=== PATIENT | female | born 1955 | race Caucasian/White ===

== ENCOUNTER 2018-01-24 14:00 | Inpatient (IN) | payer OTHER ==
[~2018-01-24] VITALS: Ht 170.2 cm; Wt 44.2 kg
[~2018-01-24 14:00] MED LIST: AMLODIPINE BESYL5 MG PO; ASPIR-LOW81 MG PO; ATORVASTATIN CA80 MG PO; CALCIUM 500 MG1 EACH PO; CARDIZEM CD,CA120 MG PO; CHLORDIAZEPOXID25 MG PO; CIPROFLOXACIN500 M1 PO; CLONIDINE HCL0.2 MG PO; COLACE100 MG PO; CYANOCOBAL1000 MCG/2 IM; FAMOTIDINE20 MG PO; FLEXERIL10 MG PO; FOLIC ACID1 MG PO; HEPARIN SO5000 UNITS SC; HYDROCODON-ACE1 EAC7 PO; K-DUR20 MEQ PO; LISINOPRIL10 MG PO; LISINOPRIL20 MG PO; NICOTINE PATCH1 EAC2 TD; NOHOMEMEDS; NORVASC10 MG PO; THERAGRAN1 TABLET PO; Thiamine,Vitamin B1 PO; VANCOCIN HCL125 MG PO
[2018-01-24 15:09] LABS: HEMATOCRIT 32.1 % (36.0-46.0); HEMOGLOBIN 11.8 G/DL (11.9-15.5); MCHC 36.8 G/DL (30.0-36.0); MCV 81.7 FL (83-99); PLATELET COUNT 307 K/uL (156-360); RBC DIS.WIDTH-SD 39.2 % (39-53); RED BLOOD COUNT 3.93 M/uL (3.80-5.20); WHITE BLOOD COUNT 5.4 K/uL (4.1-10.2)
[2018-01-24 15:20] LABS: ALBUMIN 4.3 g/dL (3.2-4.8); CHLORIDE 86 mEq/L (99-109); POTASSIUM 4.4 mEq/L (3.7-5.4); SODIUM 125 mEq/L (136-147)
[2018-01-24 15:22] LABS: GLUCOSE 106 mg/dL (70-99)
[2018-01-24 15:23] LABS: TOTAL PROTEIN 7.7 g/dL (6.4-8.3)
[2018-01-24 15:24] LABS: TOTAL BILIRUBIN 0.5 mg/dL (0.0-1.0)
[2018-01-24 15:26] LABS: ALKALINE PHOSPHATASE 86 IU/L (3-129); CREATININE 6.9 mg/dL (0.6-1.3); GFR ESTIMATE (CALCULATED) 6 mL/min/
[2018-01-24 15:28] LABS: AST (GOT) 18 IU/L (2-34); DIRECT BILIRUBIN 0.2 mg/dL (0.0-0.3)
[2018-01-24 15:29] LABS: ALT (GPT) 11 IU/L (3-49); TROP-I INTERPRETATION NEGATIVE; TROPONIN-I 0.19 ng/mL (0.0-0.30)
[2018-01-24 15:30] LABS: UREA NITROGEN (BUN) 101 mg/dL (9-23)
[2018-01-24] MEDS ORDERED: LISINOPRIL40 MG PO (16:04)
[2018-01-24] MEDS ORDERED: CHLORTHALIDONE25 MG PO (16:04)
[2018-01-24] MEDS ORDERED: LO-DOSE ASPIRIN81 M2 PO (16:05)
[2018-01-24] MEDS ORDERED: FOLIC ACID1 MG PO (16:06)
[2018-01-24] MEDS ORDERED: LIBRIUM25 MG PO (16:07)
[2018-01-24 16:20] LABS: CREATINE KINASE 59 IU/L (1-294); TOTAL CK 59 IU/L (1-294)
[2018-01-24 16:26] LABS: CK-MB 5.1 ng/mL (0.0-4.9); CKMB RELATIVE INDEX 8.6 (0.0-3.9)
[2018-01-24 17:22] LABS: THYROTROPIN (TSH) 2.4 MIU/L (0.4-5.5)
[2018-01-24 17:54] LABS: APPEARANCE SL.HAZY ((CLEAR)); BILIRUBIN NEGATIVE; BLOOD NEGATIVE; COLOR YELLOW ((YELLOW)); GLUCOSE (STRIP) NEGATIVE; KETONES 5; LEUKOCYTES TRACE; NITRITE NEGATIVE; PROTEIN (STRIP) NEGATIVE; SPECIFIC GRAVITY 1.006 (1.000-1.030); UROBILINOGEN 0.2 MG/DL (0.2-1.0)
[2018-01-24 18:03] VITALS: BP 103/60
[2018-01-24 18:10] LABS: BACTERIA RARE /HPF; CALCIUM OXALATE CRYSTALS 2+ /HPF; EPITHELIAL CELLS RARE /HPF; HYALINE CASTS 0-5 /LPF; MUCUS NONE SEEN /LPF; RED BLOOD CELLS NONE SEEN /HPF (0-5); UCUL ADDED? NO; WHITE BLOOD CELLS 0-5 /HPF (0-5)
[2018-01-24 19:36] VITALS: BP 91/58
[2018-01-25 00:54] VITALS: BP 98/62
[2018-01-25 04:15] VITALS: BP 100/57
[2018-01-25 06:38] LABS: HEMATOCRIT 27.1 % (36.0-46.0); MCH 28.9 PG (29.0-34.0); MCHC 34.7 G/DL (30.0-36.0); MCV 83.4 FL (83-99); PLATELET COUNT 276 K/uL (156-360); RBC DIS.WIDTH-CV 13.3 % (11.8-14.6); RBC DIS.WIDTH-SD 40.6 % (39-53); RED BLOOD COUNT 3.25 M/uL (3.80-5.20); WHITE BLOOD COUNT 4.2 K/uL (4.1-10.2)
[2018-01-25 06:49] LABS: HEMOGLOBIN 9.4 G/DL (11.9-15.5)
[2018-01-25 06:54] LABS: ALBUMIN 3.3 G/DL (3.2-4.8); CHLORIDE 99 MEQ/L (99-109); CREATINE KINASE 70 IU/L (1-294); GLUCOSE 95 mg/dL (70-99); MAGNESIUM 1.9 mg/dl (1.3-2.7); PHOSPHORUS 4.4 mg/dL (2.5-4.9); POTASSIUM 3.9 MEQ/L (3.7-5.4); UREA NITROGEN (BUN) 90 mg/dL (9-23)
[2018-01-25 07:01] LABS: CREATININE 3.4 MG/DL (0.6-1.3); GFR ESTIMATE (CALCULATED) 15 mL/min/; SODIUM 132 MEQ/L (136-147)
[2018-01-25 07:35] VITALS: BP 106/58
[2018-01-25 08:23] LABS: HEMATOCRIT 26.1 % (36.0-46.0); HEMOGLOBIN 9.4 G/DL (11.9-15.5); MCV 82.9 FL (83-99)
[2018-01-25 11:40] VITALS: BP 123/84
[2018-01-25 14:58] LABS: HEMATOCRIT 26.7 % (36.0-46.0); HEMOGLOBIN 9.7 G/DL (11.9-15.5); MCV 81.9 FL (83-99)
[2018-01-25 17:05] LABS: INTACT PARATHYROID HORMONE 103 pg/mL (10-69)
[2018-01-25 20:01] VITALS: BP 85/57
[2018-01-25 20:32] VITALS: BP 110/72
[2018-01-26 00:11] VITALS: BP 95/61
[2018-01-26 03:59] VITALS: BP 96/63
[2018-01-26 05:40] LABS: BASOPHIL (%) 0.7 % (0-1); EOSINOPHIL (%) 1.6 % (0-5); EOSINOPHIL COUNT 0.1 K/uL (0-0.3); HEMATOCRIT 24.8 % (36.0-46.0); HEMOGLOBIN 8.9 G/DL (11.9-15.5); IMMATURE GRANULOCYTE (%) 0.4 % (0.0-0.7); LYMPHOCYTE (%) 26.3 % (15-42); LYMPHOCYTE COUNT 1.2 K/uL (1.0-2.8); MCH 29.4 PG (29.0-34.0); MCHC 35.9 G/DL (30.0-36.0); MCV 81.8 FL (83-99); MONOCYTE (%) 9.6 % (3-12); MONOCYTE COUNT 0.4 K/uL (0-0.8); NEUTROPHIL (%) 61.4 % (45-76); NEUTROPHIL COUNT 2.8 K/uL (1.8-6.4); PLATELET COUNT 287 K/uL (156-360); RBC DIS.WIDTH-CV 13.3 % (11.8-14.6); RBC DIS.WIDTH-SD 40.1 % (39-53); RED BLOOD COUNT 3.03 M/uL (3.80-5.20); WHITE BLOOD COUNT 4.5 K/uL (4.1-10.2)
[2018-01-26 07:23] VITALS: BP 106/60
[2018-01-26 07:48] LABS: ALKALINE PHOSPHATASE 45 IU/L (3-129); ALT (GPT) 9 IU/L (3-49); AST (GOT) 16 IU/L (2-34); CHLORIDE 102 MEQ/L (99-109); GLUCOSE 136 mg/dL (70-99); IRON 83 MCG/DL (35-150); SODIUM 136 MEQ/L (136-147); TOTAL BILIRUBIN 0.3 MG/DL (0.0-1.0); TOTAL PROTEIN 5.1 G/DL (6.4-8.3); TRANSFERRIN (TIBC) 139.3 mg/dL (215-380); TRANSFERRIN SATUR. 60 % (20-55); UREA NITROGEN (BUN) 56 mg/dL (9-23)
[2018-01-26 07:49] LABS: CREATININE 1.4 MG/DL (0.6-1.3); GFR ESTIMATE (CALCULATED) 40 mL/min/; MAGNESIUM 1.3 mg/dl (1.3-2.7); PHOSPHORUS 2.5 mg/dL (2.5-4.9); POTASSIUM 2.9 MEQ/L (3.7-5.4)
[2018-01-26 08:42] LABS: FERRITIN 165 NG/ML (10-291)
[2018-01-26 09:43] LABS: INTACT PARATHYROID HORMONE 81 pg/mL (10-69)
[2018-01-26 10:15] LABS: FOLIC ACID (FOLATE) > 22.0 NG/ML (5.0-22.0)
[2018-01-26 11:27] VITALS: BP 93/54
[2018-01-26 15:33] VITALS: BP 115/78
[2018-01-26 19:36] VITALS: BP 137/67
[2018-01-27] VITALS (7 sets, daily range): BP systolic 106–163; BP diastolic 60–92
[2018-01-27 08:40] LABS: HEMATOCRIT 26.5 % (36.0-46.0); HEMOGLOBIN 9.1 G/DL (11.9-15.5); MCH 29.8 PG (29.0-34.0); MCHC 34.3 G/DL (30.0-36.0); PLATELET COUNT 247 K/uL (156-360); RBC DIS.WIDTH-CV 14.6 % (11.8-14.6); RBC DIS.WIDTH-SD 45.9 % (39-53); RED BLOOD COUNT 3.05 M/uL (3.80-5.20); WHITE BLOOD COUNT 5.1 K/uL (4.1-10.2)
[2018-01-27 08:57] LABS: MCV 86.9 FL (83-99)
[2018-01-27 09:17] LABS: CHLORIDE 108 MEQ/L (99-109); CREATININE 1.1 MG/DL (0.6-1.3); GFR ESTIMATE (CALCULATED) 53 mL/min/; GLUCOSE 125 mg/dL (70-99); SODIUM 137 MEQ/L (136-147)
[2018-01-27 09:24] LABS: POTASSIUM 4.5 MEQ/L (3.7-5.4); UREA NITROGEN (BUN) 27 mg/dL (9-23)
[2018-01-28] VITALS (7 sets, daily range): BP systolic 101–134; BP diastolic 59–89
[2018-01-28 03:09] LABS: C DIFF TOXIN NEGATIVE (NEGATIVE)
[2018-01-28 06:44] LABS: HEMATOCRIT 25.7 % (36.0-46.0); HEMOGLOBIN 8.8 G/DL (11.9-15.5); MCH 29.6 PG (29.0-34.0); MCHC 34.2 G/DL (30.0-36.0); MCV 86.5 FL (83-99); PLATELET COUNT 261 K/uL (156-360); RBC DIS.WIDTH-CV 14.7 % (11.8-14.6); RED BLOOD COUNT 2.97 M/uL (3.80-5.20); WHITE BLOOD COUNT 6.1 K/uL (4.1-10.2)
[2018-01-28 07:12] LABS: CHLORIDE 107 MEQ/L (99-109); GFR ESTIMATE (CALCULATED) > 59 mL/min/; POTASSIUM 4.1 MEQ/L (3.7-5.4); SODIUM 138 MEQ/L (136-147); UREA NITROGEN (BUN) 17 mg/dL (9-23)
[2018-01-28 07:18] LABS: GLUCOSE 93 mg/dL (70-99)
[2018-01-29 04:00] VITALS: BP 105/64
[2018-01-29 07:32] VITALS: BP 103/65
[2018-01-29 11:30] VITALS: BP 99/60
[2018-01-29 11:55] VITALS: BP 112/68
[2018-01-29 12:49] LABS: ALBUMIN 3.2 g/dL (3.2-4.8); POTASSIUM 4.2 mEq/L (3.7-5.4); SODIUM 139 mEq/L (136-147)
[2018-01-29 12:50] LABS: MAGNESIUM 1.1 mg/dL (1.3-2.7)
[2018-01-29 12:52] LABS: CHLORIDE 109 mEq/L (99-109); GLUCOSE 90 mg/dL (70-99)
[2018-01-29 12:53] LABS: TOTAL PROTEIN 5.3 g/dL (6.4-8.3)
[2018-01-29 12:54] LABS: TOTAL BILIRUBIN 0.2 mg/dL (0.0-1.0)
[2018-01-29 12:55] LABS: ALKALINE PHOSPHATASE 68 IU/L (3-129); PHOSPHORUS 2.7 mg/dL (2.5-4.9)
[2018-01-29 12:56] LABS: CREATININE 0.9 mg/dL (0.6-1.3); GFR ESTIMATE (CALCULATED) > 59 mL/min/
[2018-01-29 12:57] LABS: AST (GOT) 15 IU/L (2-34); UREA NITROGEN (BUN) 11 mg/dL (9-23)
[2018-01-29 12:58] LABS: ALT (GPT) 14 IU/L (3-49)
[2018-01-29 13:43] LABS: HEMATOCRIT 27.8 % (36.0-46.0); HEMOGLOBIN 9.5 G/DL (11.9-15.5); MCH 29.6 PG (29.0-34.0); MCHC 34.2 G/DL (30.0-36.0); MCV 86.6 FL (83-99); PLATELET COUNT 247 K/uL (156-360); RBC DIS.WIDTH-CV 14.6 % (11.8-14.6); RBC DIS.WIDTH-SD 46.9 % (39-53); RED BLOOD COUNT 3.21 M/uL (3.80-5.20)
[2018-01-29 14:30] LABS: APPEARANCE CLOUDY ((CLEAR)); BILIRUBIN NEGATIVE; BLOOD SMALL; COLOR YELLOW ((YELLOW)); GLUCOSE (STRIP) NEGATIVE; KETONES NEGATIVE; LEUKOCYTES LARGE; NITRITE POSITIVE; PROTEIN (STRIP) NEGATIVE; SPECIFIC GRAVITY 1.009 (1.000-1.030); UROBILINOGEN 0.2 MG/DL (0.2-1.0)
[2018-01-29 14:38] LABS: BACTERIA 2+ /HPF; EPITHELIAL CELLS RARE /HPF; MUCUS TRACE /LPF; UCUL ADDED? YES; WHITE BLOOD CELLS TNTC /HPF (0-5)
[2018-01-29 15:31] VITALS: BP 122/82
[2018-01-29 15:59] LABS: FERRITIN 150 NG/ML (10-291); IRON 86 MCG/DL (35-150); TRANSFERRIN (TIBC) 136.9 mg/dL (215-380); TRANSFERRIN SATUR. 63 % (20-55)
[2018-01-29 19:31] VITALS: BP 111/65
[2018-01-30 00:48] VITALS: BP 97/51
[2018-01-30 03:58] VITALS: BP 111/59
[2018-01-30 07:05] LABS: HEMATOCRIT 23.5 % (36.0-46.0); HEMOGLOBIN 7.8 G/DL (11.9-15.5); MCHC 33.2 G/DL (30.0-36.0); MCV 87.4 FL (83-99); PLATELET COUNT 238 K/uL (156-360); RBC DIS.WIDTH-CV 15.1 % (11.8-14.6); RBC DIS.WIDTH-SD 48.1 % (39-53); RED BLOOD COUNT 2.69 M/uL (3.80-5.20); WHITE BLOOD COUNT 4.1 K/uL (4.1-10.2)
[2018-01-30 07:37] VITALS: BP 113/69
[2018-01-30 08:23] LABS: CHLORIDE 112 MEQ/L (99-109); GFR ESTIMATE (CALCULATED) > 59 mL/min/; GLUCOSE 98 mg/dL (70-99); MAGNESIUM 1.5 mg/dl (1.3-2.7); POTASSIUM 3.9 MEQ/L (3.7-5.4); SODIUM 141 MEQ/L (136-147); UREA NITROGEN (BUN) 9 mg/dL (9-23)
[2018-01-30 10:11] LABS: STOOL OCCULT BLD 1ST SPECIMEN NEGATIVE
[2018-01-30 11:59] VITALS: BP 121/62
[2018-01-30 14:01] LABS: ABSOLUTE RETICULOCYTE CT. 0.03 M/uL (0.02-0.08); HEMATOCRIT 26.8 % (36.0-46.0); HEMOGLOBIN 9.1 G/DL (11.9-15.5); IMM.RETIC FRACTION 4.7 % (3-19); MCV 88.7 FL (83-99); RETIC HGB EQUIVALENT 29.4 (28-36)
[2018-01-30 16:07] VITALS: BP 138/64
[2018-01-30 16:17] LABS: PTT 16.6 SEC (25-37)
[2018-01-30 20:00] VITALS: BP 128/66
[2018-01-31 00:14] VITALS: BP 120/73
[2018-01-31 04:04] VITALS: BP 124/84
[2018-01-31 05:49] LABS: HEMATOCRIT 22.5 % (36.0-46.0); HEMOGLOBIN 7.5 G/DL (11.9-15.5); MCHC 33.3 G/DL (30.0-36.0); MCV 86.9 FL (83-99); PLATELET COUNT 243 K/uL (156-360); RBC DIS.WIDTH-SD 47.9 % (39-53); RED BLOOD COUNT 2.59 M/uL (3.80-5.20); WHITE BLOOD COUNT 4.6 K/uL (4.1-10.2)
[2018-01-31 06:37] LABS: CHLORIDE 108 MEQ/L (99-109); CREATININE 1.1 MG/DL (0.6-1.3); GFR ESTIMATE (CALCULATED) 53 mL/min/; GLUCOSE 95 mg/dL (70-99); POTASSIUM 3.9 MEQ/L (3.7-5.4); SODIUM 136 MEQ/L (136-147); UREA NITROGEN (BUN) 9 mg/dL (9-23)
[2018-01-31 07:09] VITALS: BP 137/71
[2018-01-31 12:04] VITALS: BP 114/70
[2018-01-31] MEDS ORDERED: FAMOTIDINE20 MG PO (14:05)
[2018-01-31] MEDS ORDERED: ACETAMINOPHEN650 M5 PO (14:05)
[2018-01-31] MEDS ORDERED: MAG-OXIDE400 MG PO (14:05)
[2018-01-31] MEDS ORDERED: CEFTIN500 MG PO (14:06)
[2018-01-31 16:20] VITALS: BP 149/79
== END 2018-01-31 16:32 | DRG 682 ==
LOC: EME 14:00 → 5SOUTH 16:22 → EDOF 16:22 → 5SOUTH 17:49 → ENRESERV 22:04 → 5SOUTH 22:05
PROVIDERS: Emergency Medicine; Hospitalist; Internal Medicine; Internal Medicine Nephrology; Physician Assistant Medical
DX: N17.9 Acute kidney failure, unspecified (principal); G93.41 Metabolic encephalopathy; N39.0 Urinary tract infection, site not specified; E87.2 Acidosis; E87.1 Hypo-osmolality and hyponatremia; Z68.1 Body mass index [BMI] 19.9 or less, adult; F05 Delirium due to known physiological condition; M80.852A Other osteoporosis with current pathological fracture, left femur, initial encounter for fracture; M80.851A Other osteoporosis with current pathological fracture, right femur, initial encounter for fracture; S32.512A Fracture of superior rim of left pubis, initial encounter for closed fracture; S32.511A Fracture of superior rim of right pubis, initial encounter for closed fracture; E51.8 Other manifestations of thiamine deficiency; E46 Unspecified protein-calorie malnutrition; D63.1 Anemia in chronic kidney disease; E83.42 Hypomagnesemia; E86.0 Dehydration; I12.9 Hypertensive chronic kidney disease with stage 1 through stage 4 chronic kidney disease, or unspecified chronic kidney disease; N18.9 Chronic kidney disease, unspecified; E87.6 Hypokalemia; E87.8 Other disorders of electrolyte and fluid balance, not elsewhere classified; I95.9 Hypotension, unspecified; R13.10 Dysphagia, unspecified; F17.210 Nicotine dependence, cigarettes, uncomplicated; I73.9 Peripheral vascular disease, unspecified; E11.22 Type 2 diabetes mellitus with diabetic chronic kidney disease; I77.1 Stricture of artery; M47.818 Spondylosis without myelopathy or radiculopathy, sacral and sacrococcygeal region; M85.80 Other specified disorders of bone density and structure, unspecified site; F10.20 Alcohol dependence, uncomplicated; Y90.9 Presence of alcohol in blood, level not specified; R29.6 Repeated falls; R62.7 Adult failure to thrive; R41.3 Other amnesia; R45.87 Impulsiveness; E88.89 Other specified metabolic disorders; T73.0XXA Starvation, initial encounter; E86.9 Volume depletion, unspecified; I95.1 Orthostatic hypotension; Z79.82 Long term (current) use of aspirin; Z85.41 Personal history of malignant neoplasm of cervix uteri; Z90.710 Acquired absence of both cervix and uterus; Z91.81 History of falling; I69.311 Memory deficit following cerebral infarction; I69.391 Dysphagia following cerebral infarction
CPT/HCPCS: 70450; 71045; 72192; 73521; 76770; 80048; 80053; 80069; 80076; 81003; 82272; 82306; 82550; 82553; 82570; 82607; 82728; 82746; 82948; 83540; 83735; 83970; 84100; 84156; 84300; 84443; 84466; 84484; 85014; 85018; 85025; 85027; 85046; 85610; 85730; 86850; 86900; 86901; 87077; 87086; 87186; 87493; 92610 GN; 93005; 99281; 99285; J0696; J1644; J3411; J3475; J7030; J7040; J7042; J7050